=== PATIENT | male | born 1990 | race Caucasian/White ===

== ENCOUNTER → 2018-04-01 | Outpatient (CLI) | payer OTHER ==
--- NOTE | ~2018-04-01 | EKG ---
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
== END | disposition home or self-care (01) ==
LOC: CARD 09:56
DX: Z51.81 Encounter for therapeutic drug level monitoring (principal); F15.90 Other stimulant use, unspecified, uncomplicated; Z79.899 Other long term (current) drug therapy

== ENCOUNTER → 2020-04-10 | Outpatient (CLI) | payer OTHER ==
[2020-04-10 16:07] LABS: BASO # 0.1 10*3/uL (0.0-0.1); BASO % 0.8 % (0.0-1.0); EOS # 0.1 10*3/uL (0.0-0.4); EOS % 1.5 % (1.0-4.0); HEMATOCRIT 44.4 % (42.0-52.0); LYMPH # 1.7 10*3/uL (1.3-4.4); LYMPH % 27.5 % (27.0-41.0); MEAN CELL VOLUME 87.2 fl (80.0-94.0); MEAN CORPUSCULAR HGB 29.9 pg (27.0-31.0); MEAN CORPUSCULAR HGB CONC 34.2 g/dl (33.0-37.0); MEAN PLATELET VOLUME 10.1 fl (9.6-12.3); MONO # 0.5 10*3/uL (0.1-1.0); MONO % 7.7 % (3.0-9.0); NEUT # 3.8 10*3/uL (2.3-7.9); NEUT % 62.3 % (47.0-73.0); PLATELET COUNT AUTOMATED 164 10*3/uL (130-400); RED BLOOD COUNT 5.09 10*6/uL (4.50-5.90); RED CELL DISTRI WIDTH 12.5 % (0-14.5); RETICULOCYTE % 1.22 % (0.50-2.50); WHITE BLOOD COUNT 6.1 10*3/uL (4.8-10.8)
[2020-04-10 16:12] LABS: BILIRUBIN Negative (Negative); BLOOD Negative (Negative); CLARITY Cloudy (Clear); COLOR Yellow (Yellow); GLUCOSE Negative (Negative); KETONE Negative (Negative); LEUKO ESTERASE Negative (Negative); NITRITE Negative (Negative); UROBILINOGEN 0.2 E.U./dl (0.0-1.0)
[2020-04-10 16:38] LABS: ALBUMIN 3.9 gm/dl (3.1-4.5); ALKALINE PHOSPHATASE 68 U/L (45-117); BUN 13 mg/dl (7-24); CHLORIDE 108 mmol/L (98-107); CHOLESTEROL 188 mg/dL (<200); GAMMA GLUTAMYL TRANSPEPTIDASE 37 U/L (15-85); HDL CHOLESTEROL 51 mg/dl (40-60); IRON 52 ug/dL (65-175); LDL CHOLESTEROL 122 mg/dL (9-159); SGOT/AST 28 IU/L (3-35); SGPT/ALT 39 U/L (12-78); SODIUM 141 mmol/L (136-145); TOTAL PROTEIN 7.7 gm/dL (6.4-8.2); TRIGLYCERIDES 76 mg/dl (<150); URIC ACID 4.6 mg/dL (3.5-7.2); VLDL CHOLESTEROL 15 mg/dL (6-40)
[2020-04-10 16:42] LABS: BACTERIA 1+; RBC 0-2 rbc/hpf (0-2)
[2020-04-10 16:43] LABS: TOTAL IRON BINDING CAPACITY 283 ug/dl (250-450)
[2020-04-10 16:58] LABS: VITAMIN D, 25-HYDROXY 34.1 ng/mL (30-100)
[2020-04-10 16:59] LABS: FERRITIN 151.8 ng/mL (22.0-322.0)
[2020-04-11 08:07] LABS: RHEUMATOID ARTHRITIS FACTOR <10.0 IU/mL (0.0-13.9)
[2020-04-11 14:10] LABS: ANTI-DSDNA ANTIBODIES <1 IU/mL (0-9)
== END | disposition home or self-care (01) ==
LOC: LAB 15:42
PROVIDERS: ATTEND Family Medicine
DX: E55.9 Vitamin D deficiency, unspecified (principal); R79.89 Other specified abnormal findings of blood chemistry; R53.83 Other fatigue; E78.5 Hyperlipidemia, unspecified

== ENCOUNTER → 2020-04-30 | Outpatient (CLI) | payer OTHER | END | disposition home or self-care (01) | LOC: LAB 16:45 | PROVIDERS: ATTEND Family Medicine | DX: R53.83 Other fatigue (principal); R79.89 Other specified abnormal findings of blood chemistry ==